=== PATIENT | male | born 1935 | race Two or more races ===

== ENCOUNTER 2024-10-14 15:07 | Inpatient (IN) | payer MEDICARE, BC ==
[~2024-10-14] VITALS: Ht 172.7 cm; Wt 66.7 kg
[2024-10-14] MEDS ORDERED: MAGNESIUM (15:40)
[2024-10-14] MEDS ORDERED: MECL-159 PO (15:40)
[2024-10-14] MEDS ORDERED: FAMO-132 PO (15:40)
[2024-10-14] MEDS ORDERED: RANO500T3 PO (15:40)
[2024-10-14] MEDS ORDERED: Co Q-10 (15:40)
[2024-10-14] MEDS ORDERED: CLOP75TA15 PO (15:40)
[2024-10-14] MEDS ORDERED: AMLO5TAB4 PO (15:40)
[2024-10-14] MEDS ORDERED: ROSU10TA2 PO (15:40)
[2024-10-14] MEDS ORDERED: ISOS60TA72 PO (15:40)
[2024-10-14] MEDS ORDERED: TRAZ-182 PO (15:40)
[2024-10-14] MEDS ORDERED: LOSA25TA3 PO (15:40)
[2024-10-14] MEDS ORDERED: GUAI600T53 PO (15:40)
[2024-10-14 15:52] LABS: BASOPHILS % (AUTO) 0.4 % (0.0-2.0); EOSINOPHILS # (AUTO) 0.1 K/uL (0.0-0.7); EOSINOPHILS % (AUTO) 1.4 % (0.0-7.0); HEMATOCRIT 31.6 % (36.7-47.1); HEMOGLOBIN 11.1 g/dL (12.5-16.3); LYMPHOCYTES # (AUTO) 0.6 K/uL (0.8-4.8); LYMPHOCYTES % (AUTO) 6.2 % (20.5-51.5); MEAN CORPUSCULAR HGB CONC 35 g/dL (32.5-36.3); MEAN CORPUSCULAR VOLUME 94.1 fL (73.0-96.2); MONOCYTES # (AUTO) 0.7 K/uL (0.1-1.30); MONOCYTES % (AUTO) 7.1 % (0.0-11.0); NEUTROPHILS # (AUTO) 8.6 K/uL (1.8-8.9); NEUTROPHILS % (AUTO) 84.9 % (38.5-71.5); PLATELET COUNT (AUTO) 123 K/uL (152-348); RED BLOOD CELL COUNT(AUTO) 3.36 MIL/uL (4.06-5.63); RED CELL DISTRIBUTION WIDTH 13.6 % (12.1-16.2); WHITE BLOOD COUNT (AUTO) 10.1 K/uL (3.6-10.2)
[2024-10-14 15:56] LABS: DIFFERENTIAL COMMENT 1
[2024-10-14 16:05] LABS: ALANINE AMINOTRANSFERASE 21 U/L (16-63); ALBUMIN 3.7 g/dL (3.4-5.0); ALKALINE PHOSPHATASE 105 U/L (50-136); ASPARTATE AMINOTRANSFERASE 19 U/L (15-37); BILIRUBIN,DIRECT 0.2 mg/dL (0.0-0.2); BILIRUBIN,TOTAL 0.6 mg/dL (0.2-1.0); CALCIUM 9.4 mg/dL (8.5-10.1); CARBON DIOXIDE 26 mmol/L (21-32); CHLORIDE 101 mmol/L (98-107); CREATININE 2.2 mg/dL (0.6-1.3); GLUCOSE 147 mg/dL (74-106); POTASSIUM 4.9 mmol/L (3.5-5.1); SODIUM SERUM 138 mmol/L (136-145); TOTAL PROTEIN, SERUM 7.2 g/dL (6.4-8.2); UREA NITROGEN, BLOOD 50 mg/dL (7-18)
[2024-10-14 16:10] LABS: LACTIC ACID 2.3 mmol/L (0.4-2.0)
[2024-10-14 16:28] LABS: THYROID STIMULATING HORMONE 1.418 mIU/mL (0.358-3.740)
[2024-10-14] MEDS ORDERED: CEFTRIAXONE /D5W 50ML IVPB **ER PYXIS IV ONE (16:33)
[2024-10-14] MEDS: IV NORMAL SALINE 1000 ML BAG IV ONE (16:48)
[2024-10-14] MEDS: CEFTRIAXONE 1 G in IV DEXTROSE 5% 50 ML IV ONE (16:48)
[2024-10-14] MEDS ORDERED: VANCOMYCIN IV 200 ML ONE (17:01)
[2024-10-14] MEDS: VANCOMYCIN IV 1,000 MG in IV DEXTROSE 5% 250 ML IV ONE (17:03)
[2024-10-14] MEDS ORDERED: ONDANSETRON 4 MG/2 ML VIAL IV PRN (17:30)
[2024-10-14] MEDS: ENOXAPARIN SODIUM 30 MG/0.3 ML DISP.SYRIN SQ SCH (17:30)
[2024-10-14] MEDS ORDERED: REMEDY ESSENTIAL ZINC PASTE 113 GM TP PRN (17:30)
[2024-10-14 17:43] LABS: *BILIRUBIN,URIN NEGATIVE (NEGATIVE); *BLOOD, URINE NEGATIVE (NEGATIVE); *CLARITY,URINE CLEAR (CLEAR); *COLOR,URINE YELLOW (YELLOW); *KETONES,URINE NEGATIVE (NEGATIVE); *PROTEIN,URINE 2+ (NEGATIVE); *UROBILINOGEN,URINE 0.2 E.U./dl (NORMAL); LEUKOCYTE ESTERASE ,URINE NEGATIVE (NEGATIVE); NITRITE, URINE NEGATIVE (NEGATIVE); PH,URINE 5.5 (5.0-8.0); UGLUCOSE NEGATIVE (NEGATIVE)
[2024-10-14 17:50] LABS: BACTERIA,URINE NONE SEEN /HPF (NONE SEEN); RBC,URINE 0-3 /HPF (0-3); SQUAMOUS EPITHELIAL CELL,UR NONE SEEN /HPF (NONE SEEN); WBC,URINE 0-3 /HPF (0-3)
[2024-10-14] MEDS ORDERED: levETIRAcetam 500 MG/5 ML VIAL IV ONE (18:00)
[2024-10-14] MEDS: levETIRAcetam IV 1,000 MG in IV DEXTROSE 5% 100 ML IV ONE (18:17)
[2024-10-14] MEDS ORDERED: MORPHINE SULFATE 4 MG/1 ML DISP.SYRIN ONE ×2 (18:51→19:47)
[2024-10-14 18:52] LABS: BASOPHILS % (AUTO) 0.3 % (0.0-2.0); EOSINOPHILS # (AUTO) 0.2 K/uL (0.0-0.7); EOSINOPHILS % (AUTO) 1.8 % (0.0-7.0); HEMATOCRIT 30.3 % (36.7-47.1); HEMOGLOBIN 10.8 g/dL (12.5-16.3); LYMPHOCYTES # (AUTO) 0.8 K/uL (0.8-4.8); LYMPHOCYTES % (AUTO) 8.9 % (20.5-51.5); MEAN CORPUSCULAR HEMOGLOBIN 33.1 uug (23.8-33.4); MEAN CORPUSCULAR HGB CONC 36 g/dL (32.5-36.3); MEAN CORPUSCULAR VOLUME 92.9 fL (73.0-96.2); MONOCYTES # (AUTO) 0.7 K/uL (0.1-1.30); MONOCYTES % (AUTO) 7.9 % (0.0-11.0); NEUTROPHILS # (AUTO) 7.1 K/uL (1.8-8.9); NEUTROPHILS % (AUTO) 81.1 % (38.5-71.5); PLATELET COUNT (AUTO) 105 K/uL (152-348); RED BLOOD CELL COUNT(AUTO) 3.26 MIL/uL (4.06-5.63); RED CELL DISTRIBUTION WIDTH 13.6 % (12.1-16.2); WHITE BLOOD COUNT (AUTO) 8.7 K/uL (3.6-10.2)
[2024-10-14] MEDS: ONDANSETRON 4 MG/2 ML VIAL IV ONE (18:52)
[2024-10-14] MEDS: MORPHINE SULFATE 4 MG/1 ML DISP.SYRIN IV ONE ×2 (18:52→19:50)
[2024-10-14 19:00] VITALS: BP 140/58; TEMP 97.7; O2SAT 98
[2024-10-14 19:00] LABS: CALCIUM 8.7 mg/dL (8.5-10.1); CARBON DIOXIDE 22 mmol/L (21-32); CHLORIDE 103 mmol/L (98-107); GLUCOSE 168 mg/dL (74-106); POTASSIUM 4.9 mmol/L (3.5-5.1); SODIUM SERUM 136 mmol/L (136-145); UREA NITROGEN, BLOOD 44 mg/dL (7-18)
[2024-10-14] MEDS: TRAZODONE 50 MG TABLET PO SCH (20:40)
[2024-10-14] MEDS: ATORVASTATIN 20 MG TABLET PO SCH (21:10)
[2024-10-14] MEDS: IV NS 1000 ML 1,000 ML IV PRN (23:10)
[2024-10-15] MEDS: ACETAMINOPHEN 325 MG TABLET PO PRN (06:12)
[2024-10-15] MEDS: PANTOPRAZOLE SODIUM 40 MG TABLET.DR PO SCH (06:15)
[2024-10-15 06:24] VITALS: BP 137/54; TEMP 97.6; O2SAT 98
[2024-10-15 06:56] LABS: BASOPHILS % (AUTO) 0.4 % (0.0-2.0); EOSINOPHILS # (AUTO) 0.2 K/uL (0.0-0.7); EOSINOPHILS % (AUTO) 3.6 % (0.0-7.0); HEMATOCRIT 29.3 % (36.7-47.1); HEMOGLOBIN 10.5 g/dL (12.5-16.3); LYMPHOCYTES # (AUTO) 0.6 K/uL (0.8-4.8); MEAN CORPUSCULAR HEMOGLOBIN 33.5 uug (23.8-33.4); MEAN CORPUSCULAR HGB CONC 36 g/dL (32.5-36.3); MONOCYTES # (AUTO) 0.6 K/uL (0.1-1.30); MONOCYTES % (AUTO) 9.7 % (0.0-11.0); NEUTROPHILS # (AUTO) 5.1 K/uL (1.8-8.9); NEUTROPHILS % (AUTO) 77.3 % (38.5-71.5); PLATELET COUNT (AUTO) 99 K/uL (152-348); RED BLOOD CELL COUNT(AUTO) 3.15 MIL/uL (4.06-5.63); RED CELL DISTRIBUTION WIDTH 13.7 % (12.1-16.2); WHITE BLOOD COUNT (AUTO) 6.6 K/uL (3.6-10.2)
[2024-10-15 07:01] LABS: DIFFERENTIAL COMMENT 1
[2024-10-15 07:11] LABS: ALANINE AMINOTRANSFERASE 65 U/L (16-63); ALBUMIN 3.1 g/dL (3.4-5.0); ALKALINE PHOSPHATASE 114 U/L (50-136); ASPARTATE AMINOTRANSFERASE 71 U/L (15-37); BILIRUBIN,TOTAL 0.7 mg/dL (0.2-1.0); CALCIUM 8.8 mg/dL (8.5-10.1); CARBON DIOXIDE 23 mmol/L (21-32); CHLORIDE 106 mmol/L (98-107); CREATINE KINASE, TOTAL 33 U/L (39-308); GLUCOSE 129 mg/dL (74-106); MAGNESIUM 2.5 mg/dL (1.8-2.4); PHOSPHOROUS 3.2 mg/dL (2.5-4.9); POTASSIUM 4.6 mmol/L (3.5-5.1); SODIUM SERUM 138 mmol/L (136-145); TOTAL PROTEIN, SERUM 6.2 g/dL (6.4-8.2); UREA NITROGEN, BLOOD 40 mg/dL (7-18)
[2024-10-15 08:00] VITALS: TEMP 97.4
[2024-10-15] MEDS ORDERED: ISOSORBIDE MONONITRATE 60 MG TAB.SR.24H PO SCH (09:00)
[2024-10-15] MEDS: RANOLAZINE 500 MG TAB.ER.12H PO SCH (09:08)
[2024-10-15] MEDS: ISOSORBIDE MONONITRATE 30 MG TAB.SR.24H PO SCH (09:08)
[2024-10-15] MEDS: LOSARTAN POTASSIUM 25 MG TABLET PO SCH (09:09)
[2024-10-15] MEDS: AMLODIPINE 5 MG TABLET PO SCH (09:09)
[2024-10-15] MEDS: CLOPIDOGREL 75 MG TABLET PO SCH (09:50)
[2024-10-15] MEDS: NORMAL SALINE NASAL 45 ML BOTTLE NS SCH (10:49)
[2024-10-15 11:00] VITALS: TEMP 97.6
[2024-10-15 16:00] VITALS: TEMP 97.4
[2024-10-15 18:48] VITALS: BP 138/48; TEMP 97.4; O2SAT 97
[2024-10-15 20:00] VITALS: BP 132/60; TEMP 97.4; O2SAT 98
[2024-10-15] MEDS: TRAZODONE 50 MG TABLET PO SCH (20:45)
[2024-10-16] VITALS: BP 147/67; TEMP 98; O2SAT 98
[2024-10-16 04:00] VITALS: BP 152/71; TEMP 98.3
[2024-10-16 08:00] VITALS: BP 140/70; TEMP 98
[2024-10-16] MEDS: OLANZAPINE 10 MG VIAL IM ONE ×2 (08:29→22:23)
[2024-10-16 08:46] LABS: *BILIRUBIN,URIN NEGATIVE (NEGATIVE); *BLOOD, URINE NEGATIVE (NEGATIVE); *CLARITY,URINE CLEAR (CLEAR); *COLOR,URINE YELLOW (YELLOW); *KETONES,URINE NEGATIVE (NEGATIVE); *PROTEIN,URINE 1+ (NEGATIVE); *UROBILINOGEN,URINE 0.2 E.U./dl (NORMAL); LEUKOCYTE ESTERASE ,URINE NEGATIVE (NEGATIVE); NITRITE, URINE NEGATIVE (NEGATIVE); UGLUCOSE NEGATIVE (NEGATIVE)
[2024-10-16 08:47] LABS: *CREATININE,URINE 57.6 mg/dL (30-125); *URINE TOTAL PROTEIN RANDOM 47.9 mg/dL (<150/24HR)
[2024-10-16 09:19] LABS: SQUAMOUS EPITHELIAL CELL,UR FEW /HPF (NONE SEEN)
[2024-10-16 12:01] VITALS: BP 135/68; TEMP 98.4
[2024-10-16] MEDS: GLUCERNA SHAKE 237 ML CAN PO SCH (17:00)
[2024-10-16 18:19] VITALS: BP 132/58; TEMP 98.2; O2SAT 96
[2024-10-16 19:45] VITALS: BP 145/65; TEMP 97.2; O2SAT 96
[2024-10-17] VITALS (7 sets, daily range): BP systolic 102–166; BP diastolic 56–116; TEMP 97.9–99; O2SAT 94–97
[2024-10-17 11:11] LABS: PTH, INTACT 39 pg/mL (15-65)
[2024-10-17] MEDS ORDERED: OLANZAPINE 10 MG VIAL IM PRN (21:00)
[2024-10-18 07:16] LABS: BASOPHILS % (AUTO) 0.4 % (0.0-2.0); EOSINOPHILS # (AUTO) 0.2 K/uL (0.0-0.7); EOSINOPHILS % (AUTO) 3.4 % (0.0-7.0); HEMATOCRIT 28.2 % (36.7-47.1); HEMOGLOBIN 10.2 g/dL (12.5-16.3); LYMPHOCYTES # (AUTO) 0.6 K/uL (0.8-4.8); LYMPHOCYTES % (AUTO) 9.9 % (20.5-51.5); MEAN CORPUSCULAR HEMOGLOBIN 33.4 uug (23.8-33.4); MEAN CORPUSCULAR HGB CONC 36 g/dL (32.5-36.3); MEAN CORPUSCULAR VOLUME 92.5 fL (73.0-96.2); MONOCYTES # (AUTO) 0.6 K/uL (0.1-1.30); MONOCYTES % (AUTO) 9.8 % (0.0-11.0); NEUTROPHILS # (AUTO) 4.8 K/uL (1.8-8.9); NEUTROPHILS % (AUTO) 76.5 % (38.5-71.5); PLATELET COUNT (AUTO) 109 K/uL (152-348); RED BLOOD CELL COUNT(AUTO) 3.05 MIL/uL (4.06-5.63); WHITE BLOOD COUNT (AUTO) 6.3 K/uL (3.6-10.2)
[2024-10-18 07:38] LABS: IRON, SERUM 71 ug/dL (50-175)
[2024-10-18 07:40] LABS: AMMONIA < 10 umol/L (11-32)
[2024-10-18 08:00] VITALS: BP 142/76; TEMP 97.2; O2SAT 99
[2024-10-18 08:40] LABS: ALANINE AMINOTRANSFERASE 37 U/L (16-63); ALBUMIN 3.3 g/dL (3.4-5.0); ALKALINE PHOSPHATASE 97 U/L (50-136); ASPARTATE AMINOTRANSFERASE 46 U/L (15-37); BILIRUBIN,TOTAL 0.9 mg/dL (0.2-1.0); CALCIUM 9.2 mg/dL (8.5-10.1); CARBON DIOXIDE 22 mmol/L (21-32); CHLORIDE 106 mmol/L (98-107); CHOLESTEROL 149 mg/dL (<200); GLUCOSE 116 mg/dL (74-106); HDL CHOLESTEROL 69 mg/dL (40-60); MAGNESIUM 2.2 mg/dL (1.8-2.4); PHOSPHOROUS 3.4 mg/dL (2.5-4.9); POTASSIUM 4.3 mmol/L (3.5-5.1); SODIUM SERUM 141 mmol/L (136-145); TOTAL PROTEIN, SERUM 6.3 g/dL (6.4-8.2); TRIGLYCERIDES 85 MG/DL (30-150); UREA NITROGEN, BLOOD 32 mg/dL (7-18)
[2024-10-18 08:48] LABS: LIPASE 27 U/L (16-77)
[2024-10-18] MEDS: CYANOCOBALAMIN 1000 MCG/ML VIAL IM SCH (09:43)
[2024-10-18 12:00] VITALS: BP 139/79; TEMP 97; O2SAT 99
[2024-10-18 16:00] VITALS: BP 123/53; TEMP 97.2; O2SAT 99
[2024-10-18 19:00] VITALS: BP 120/55; TEMP 97.7; O2SAT 99
[2024-10-19 07:00] VITALS: BP 106/65; TEMP 97.9; O2SAT 98
[2024-10-19 08:31] VITALS: BP 99/54; TEMP 97.6; O2SAT 98
[2024-10-19 11:33] VITALS: BP 115/63; TEMP 97.8; O2SAT 100
[2024-10-19 15:51] VITALS: BP 131/60; TEMP 97.6; O2SAT 99
[2024-10-19 20:00] VITALS: BP 117/43; TEMP 97.8; O2SAT 99
[2024-10-20 06:00] VITALS: BP 139/61; TEMP 98.2; O2SAT 98
[2024-10-20 06:41] LABS: BASOPHILS % (AUTO) 0.7 % (0.0-2.0); EOSINOPHILS # (AUTO) 0.3 K/uL (0.0-0.7); EOSINOPHILS % (AUTO) 5.8 % (0.0-7.0); HEMATOCRIT 26.2 % (36.7-47.1); HEMOGLOBIN 9.4 g/dL (12.5-16.3); LYMPHOCYTES # (AUTO) 0.7 K/uL (0.8-4.8); LYMPHOCYTES % (AUTO) 12.7 % (20.5-51.5); MEAN CORPUSCULAR HEMOGLOBIN 33.5 uug (23.8-33.4); MEAN CORPUSCULAR HGB CONC 36 g/dL (32.5-36.3); MEAN CORPUSCULAR VOLUME 93.4 fL (73.0-96.2); MONOCYTES # (AUTO) 0.6 K/uL (0.1-1.30); MONOCYTES % (AUTO) 10.3 % (0.0-11.0); NEUTROPHILS % (AUTO) 70.5 % (38.5-71.5); PLATELET COUNT (AUTO) 106 K/uL (152-348); RED BLOOD CELL COUNT(AUTO) 2.81 MIL/uL (4.06-5.63); WHITE BLOOD COUNT (AUTO) 5.7 K/uL (3.6-10.2)
[2024-10-20 07:02] LABS: DIFFERENTIAL COMMENT 1
[2024-10-20 07:07] LABS: ALANINE AMINOTRANSFERASE 27 U/L (16-63); ALBUMIN 2.9 g/dL (3.4-5.0); ALKALINE PHOSPHATASE 87 U/L (50-136); ASPARTATE AMINOTRANSFERASE 24 U/L (15-37); BILIRUBIN,TOTAL 0.7 mg/dL (0.2-1.0); CARBON DIOXIDE 25 mmol/L (21-32); CHLORIDE 105 mmol/L (98-107); GLUCOSE 116 mg/dL (74-106); PHOSPHOROUS 3.7 mg/dL (2.5-4.9); POTASSIUM 4.2 mmol/L (3.5-5.1); SODIUM SERUM 140 mmol/L (136-145); TOTAL PROTEIN, SERUM 5.9 g/dL (6.4-8.2); UREA NITROGEN, BLOOD 41 mg/dL (7-18)
[2024-10-20 08:03] VITALS: BP 150/61
[2024-10-20] MEDS ORDERED: CYAN10006 IM (10:41)
[2024-10-20] MEDS ORDERED: TRAZ-252 PO (10:41)
[2024-10-20] MEDS ORDERED: NUT.237L36 PO (10:41)
[2024-10-23 05:11] LABS: A/G RATIO 1.3 (0.7-1.7); ALBUMIN 3.3 g/dL (2.9-4.4); ALPHA-1-GLOBULIN 0.3 g/dL (0.0-0.4); ALPHA-2-GLOBULIN 0.7 g/dL (0.4-1.0); BETA GLOBULIN 0.9 g/dL (0.7-1.3); GAMMA GLOBULIN 0.7 g/dL (0.4-1.8); GLOBULIN, TOTAL 2.6 g/dL (2.2-3.9); M-SPIKE Not Observed g/dL (Not Observed); PROTEIN, TOTAL 5.9 g/dL (6.0-8.5)
== END 2024-10-20 12:20 | DRG 682 ==
LOC: ER 15:08 → TELE3 20:14 → MEDSURG3 21:49 → TELE3 10-15 12:00 → MEDSURG3 10-17 08:36
PROVIDERS: ADMIT Nurse Practitioner Acute Care; ATTEND Nurse Practitioner Acute Care
PROC: 05HC33Z Insertion of Infusion Device into Left Basilic Vein, Percutaneous Approach (ICD-10-PCS; principal; 2024-10-15)
DX: N17.0 Acute kidney failure with tubular necrosis (principal); G92.8 Other toxic encephalopathy; D68.59 Other primary thrombophilia; E87.20 Acidosis, unspecified; F05 Delirium due to known physiological condition; E44.0 Moderate protein-calorie malnutrition; J98.11 Atelectasis; I48.0 Paroxysmal atrial fibrillation; I44.0 Atrioventricular block, first degree; Z95.1 Presence of aortocoronary bypass graft; M47.812 Spondylosis without myelopathy or radiculopathy, cervical region; M48.02 Spinal stenosis, cervical region; I35.8 Other nonrheumatic aortic valve disorders; I25.10 Atherosclerotic heart disease of native coronary artery without angina pectoris; R74.01 Elevation of levels of liver transaminase levels; E88.09 Other disorders of plasma-protein metabolism, not elsewhere classified; R29.6 Repeated falls; R26.81 Unsteadiness on feet; H91.93 Unspecified hearing loss, bilateral; Z98.62 Peripheral vascular angioplasty status; E11.51 Type 2 diabetes mellitus with diabetic peripheral angiopathy without gangrene; E78.5 Hyperlipidemia, unspecified; D63.8 Anemia in other chronic diseases classified elsewhere; Z78.1 Physical restraint status; I71.40 Abdominal aortic aneurysm, without rupture, unspecified; M15.9 Polyosteoarthritis, unspecified; D69.6 Thrombocytopenia, unspecified; E11.22 Type 2 diabetes mellitus with diabetic chronic kidney disease; I12.9 Hypertensive chronic kidney disease with stage 1 through stage 4 chronic kidney disease, or unspecified chronic kidney disease; Z79.02 Long term (current) use of antithrombotics/antiplatelets; Z79.899 Other long term (current) drug therapy; Z91.041 Radiographic dye allergy status; S20.212A Contusion of left front wall of thorax, initial encounter; W19.XXXA Unspecified fall, initial encounter; Y92.89 Other specified places as the place of occurrence of the external cause; Y99.8 Other external cause status; N18.9 Chronic kidney disease, unspecified; G25.2 Other specified forms of tremor; I25.2 Old myocardial infarction
CPT/HCPCS: 36415; 70450; 71045; 71250; 72125; 76770; 83550; 83605; 83690; 83735; 83970; 84100; 84155; 84165; 84300; 84443; 84484; 85025; 85730; 87040; 93307; A6213; C1758; G0378; J0696; J1650; J1953; J2270; J2358; J2405; J3370; J3420; J7040